=== PATIENT | male | born 1980 | race Caucasian/White ===

== ENCOUNTER 2020-07-27 12:57 | Emergency (ER) | payer BC, SELFPAY ==
[2020-07-27 13:02] VITALS: BP 129/80; PULSE 98; RESP 18; TEMP 36.9; O2SAT 99
--- NOTE | 2020-07-27 13:13 | ECG_ITS ---
Measurements Intervals [place] Rate: 107 P: 26 FL: 120 QRS: 23 QRSD: 86 T: 25 QT: 326 QTc: 436 Interpretive Statements SINUS TACHYCARDIA ST ELEVATION IN ANTERIOR LEADS- PROBABLY EARLY REPOLARIZATION BORDERLINE T WAVE ABNORMALITY- INFERIOR LEADS ABNORMAL ECG Electronically Signed On 07-27-2020 14:09:43 CDT by James Gay D.O.
--- NOTE | 2020-07-27 13:14 | ED.SYNCOPE ---
HPI - Syncope General Chief Complaint: Syncope Stated Complaint: Altered mental status Time Seen by Provider: 07/27/20 13:14 Source: patient and EMS Mode of arrival: EMS Limitations: no limitations History of Present Illness HPI narrative: Patient is a 40-year-old male with a history of asthma, recent alcohol ingestion overnight, who presents for evaluation of syncopal event. 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 Patient remembers waking up on the ground, coworker trying to speak to him. No seizure-like activity, no urinary incontinence, no confusion following the syncope. Patient currently denies any headache, chest pain or shortness of breath. No chest pain, palpitations, shortness of breath, lightheadedness or dizziness prior to the syncope. No history of syncope in the past. Patient states he was drinking alcohol last evening, otherwise denies any drug use. Patient is currently alert and oriented to person, place and to time. Related Data Allergies Allergy/AdvReac Type Severity Reaction Status Date / Time No Known Allergies Allergy Verified 07/27/20 13:08 Review of Systems Review of Systems: Narrative: CONSTITUTIONAL: Denies fever, chills, or sweats. EYES: Denies visual changes, redness, or discharge. ENT: Denies rhinorrhea, congestion, sore throat, or otalgia. CARDIOVASCULAR: Denies chest pain, palpitations, or edema. RESPIRATORY: Denies cough or dyspnea. GASTROINTESTINAL: Denies abdominal pain, nausea, vomiting, or diarrhea. GENITOURINARY: Denies dysuria or hematuria. SKIN: Denies rash or itching. MUSCULOSKELETAL: Denies back pain, joint pain, or myalgia. NEUROLOGIC: Denies headache, numbness, or weakness. FORMERLY [facility] Past Medical History Medical History Alcohol abuse Asthma Surgical History Surgical History History of hernia surgery Social History Social History (Updated 07/27/20 @ 13:29 by Dana Boone MD) Smoking status: Current every day smoker Tobacco type: cigarettes Alcohol intake: current Substance use: never Gender identity (if verbalized by the patient): Male Exam Narrative: Exam Narrative: GENERAL: Awake, alert, conversant HEAD: Normocephalic, atraumatic. EYES: PERRLA and EOMI. ENT: Nares clear, no rhinorrhea or epistaxis. Mucous membranes moist. NECK: Supple. CHEST: No respiratory distress, breathing even and non labored HEART: Regular rate, sinus rhythm ABDOMEN:Non distended, non tender EXTREMITIES: Normal range of motion. No edema. SKIN: Warm, dry, no rash. NEURO:No focal deficits. Alert and oriented x3. Finger to nose intact bilaterally. EOMs intact without nystagmus. No facial droop/asymmetry noted bilaterally. Grimace intact. Intact sensation in face. Hearing intact bilaterally. Shoulder shrug intact. Strength 5/5 bilateral upper extremities. Strength 5/5 bilateral lower extremities. Reflexes 2+ patellar. Heel to costello intact bilaterally. Ambulatory exam deferred. Course Vital Signs Vital signs: Vital Signs Temperature 36.9 C 07/27/20 13:02 Pulse Rate 98 07/27/20 13:02 Respiratory Rate 18 07/27/20 13:02 Blood Pressure 129/80 07/27/20 13:02 Pulse Oximetry 99 07/27/20 13:02 Temperature 36.9 C 07/27/20 13:02 Pulse Rate 78 07/27/20 14:49 Respiratory Rate 18 07/27/20 14:49 Blood Pressure 132/68 07/27/20 14:49 Pulse Oximetry 99 07/27/20 14:49 MDM - Syncope MDM Narrative Medical decision making narrative: Patient presented for evaluation of syncope and collapse at the workplace today. At the time of assessment, ABCs are intact and vital signs are stable. Physical exam is reassuring, including neurological exam is normal. Patient without any prodromal symptoms such as chest pain or shortness of breath. Given patient's alcohol history, I was concerned for possible
[2020-07-27 13:15] LABS: Glucose Point of Care 188 (65-105)
[2020-07-27 13:38] LABS: Basophils Absolute Auto 0.1 K/mm3 (0.0-0.1); Basophils Percent Auto 0.9 % (0.2-1.2); Eosinophils Absolute Auto 0.1 K/mm3 (0-0.3); Eosinophils Percent Auto 0.8 % (0-4.4); Hematocrit 49.7 % (42.0-52.0); Hemoglobin 17.5 g/dL (14.0-18.0); Immature Granulocyte Absolute 0.03 K/mm3 (0.00-0.031); Immature Granulocyte Percent A 0.5 % (0-0.5); Lymphocytes Absolute Auto 0.96 K/mm3 (0.9-3.2); Lymphocytes Percent Auto 14.7 % (18.3-44.2); Mean Corpuscular HGB Conc 35.2 g/dl (32-36); Mean Corpuscular Hemoglobin 33.3 pg (26-34); Mean Corpuscular Volume 94.7 fl (80-100); Mean Platelet Volume 10.6 fl (7.4-10.4); Monocytes Absolute Auto 0.5 K/mm3 (0.1-0.6); Neutrophils Percent Auto 76.1 % (45.5-73.1); Platelet Count Result 161 k/mm3 (150-375); Red Blood Count 5.25 M/mm3 (4.6-6.20); Red Cell Distribution Width 12.6 % (11.5-14.5); White Blood Count 6.5 K/mm3 (4.5-10.0)
[2020-07-27 13:45] LABS: Alveolar/Arterial O2 Gradient 40.8 mmHg; Base Excess ABG -2.1 mEq/l (+/-2.0); Fractional Inspired Oxygen 21 %; HCO3 ABG 22.1 mEq/l (22.0-26.0); Methemoglobin ABG 0.4 %THb (0-1.5); Oxygen Content ABG 22.4 %vol (16.0-22.0); Oxygen Saturation ABG 92.9 % (95.0-100.0); Oxyhemoglobin 90.3 % THb (90.0-100.0); PCO2 ABG 36.6 mmHg (35.0-45.0); PO2 ABG 65.1 mmHg (80.0-100.0); Reduced Hemoglobin 7.3 %THb (0-5.0); Total Hemoglobin 17.7 g/dL (12.0-18.0); pH ABG 7.398 (7.350-7.450)
[2020-07-27 13:46] LABS: Modified Allen's Test Pass; Site Drawn LEFT RADIAL
[2020-07-27 13:52] LABS: Anion Gap 16 mmol/L (8-16); Blood Urea Nitrogen 15 mg/dL (9-20); Calcium 9.9 mg/dL (8.4-10.2); Carbon Dioxide 19 mmol/L (22-30); Chloride 99 mmol/L (98-107); Estimated CRCL calculation 126 ml/min; Estimated Glomerular Filt Rate > 60; Glucose 174 mg/dL (75-110); Potassium 4.2 mmol/L (3.4-5.0); Sodium 134 mmol/L (137-145)
[2020-07-27 13:53] LABS: INR 1.2; Prothrombin Time 14.8 Seconds (11.1-14.7)
[2020-07-27 13:54] LABS: Partial Thromboplastin Time 25.7 SECONDS (22.3-36.8)
[2020-07-27 13:56] LABS: D Dimer 1.71 ug/mL (<0.48)
[2020-07-27 14:00] LABS: Ethanol < 10 mg/dL (<10)
[2020-07-27 14:03] LABS: Troponin I < 0.012 ng/mL (0.000-0.034)
[2020-07-27 14:49] VITALS: BP 132/68; PULSE 78; RESP 18; O2SAT 99
== END 2020-07-27 14:50 | disposition left against medical advice (07) ==
PROVIDERS: Emergency Medicine; Emergency Provider Emergency Medicine
DX: R55 Syncope and collapse (principal); F17.210 Nicotine dependence, cigarettes, uncomplicated; J45.909 Unspecified asthma, uncomplicated
CPT/HCPCS: 36415; 36600; 80048; 80307; 82375; 82805; 83050; 84484; 85025; 85380; 85610; 85730; 93005; 99284

== ENCOUNTER 2021-12-04 12:44 | Inpatient (IN) | payer MEDICAID, SELFPAY ==
[2021-12-04] VITALS (8 sets, daily range): BP systolic 117–140; BP diastolic 70–83; PULSE 81–111; RESP 16–20; TEMP 37.5; O2SAT 93–97; BMI 30.1
--- NOTE | ~2021-12-04 | CT_ITS ---
EXAMINATION: CT brain wo con EXAM DATE: 12/04/2021 14:13 INDICATION: Seizure, hit head on floor multiple seizures in last month, fell today and hit head . TECHNIQUE: Spiral CT of the head was performed without contrast. Axial, coronal and sagittal images were reviewed. The dose-length product (DLP) for this examination was 605.33 mGy-cm. The exposure w as tailored according to patient size, and iterative reconstruction (ASIR) was used as additional dos e reduction technique. There is no prior study for comparison. FINDINGS: There is no acute intraparenchymal hemorrhage. No evidence of intraparenchymal brain mass lesion. No evidence of acute infarction. There is no mass effect or midline shift. The ventricles are normal in size. There are no extra-axial collections. There are no acute calvarial fractures. T he orbits are unremarkable. Soft tissue is unremarkable. The visualized sinuses and mastoid air derrick ls are well aerated. IMPRESSION: 1. No acute intracranial findings. Reviewed, dictated and finalized at location . [facility]
--- NOTE | 2021-12-04 12:57 | ED.SEIZURE ---
HPI - Seizure General Chief Complaint: Seizure Stated Complaint: AMBULANCE Source: patient, EMS and RN notes reviewed Mode of arrival: EMS Limitations: no limitations History of Present Illness HPI Narrative: History from EMS and patient. Had several seizures at home this morning. Patient thinks he might have hit his head on the floor or the tub during seizure. He has some bruises and soreness to his upper extremities shoulders. He has been on seizure medicines consisting of carbamazepine for the last few months. He is attempting to withdrawal from alcohol the last 3 days. but did report that he drank some alcohol this morning. complaint: seizure Onset (ago): hour(s) (1) Description of Episode: loss of consciousness, tonic-clonic movement and bladder incontinence Witnessed: No Trauma: Yes Place: home Possible Precipitating Event: alcohol withdrawal Treatments prior to arrival: none Related Data Home Medications Medication Instructions Recorded Confirmed allopurinol 100 mg PO DAILY 12/04/21 12/04/21 atenolol 100 mg PO DAILY 12/04/21 12/04/21 carbamazepine 200 mg PO DAILY 12/04/21 12/04/21 hydroxyzine pamoate 50 mg PO BID 12/04/21 12/04/21 lisinopril 40 mg PO DAILY 12/04/21 12/04/21 meloxicam 15 mg PO DAILY 12/04/21 12/04/21 metformin 500 mg PO DAILY 12/04/21 12/04/21 montelukast 10 mg PO HS 12/04/21 12/04/21 omeprazole 40 mg PO DAILY 12/04/21 12/04/21 sertraline 100 mg PO DAILY 12/04/21 12/04/21 Allergies Allergy/AdvReac Type Severity Reaction Status Date / Time No Known Allergies Allergy Verified 12/04/21 13:41 Review of Systems Review of Systems: All systems reviewed & are unremarkable except as noted in HPI and below Constitutional: Constitutional: Denies chills and Denies fever(s) Cardiovascular: Cardiovascular: Denies chest pain Respiratory: Respiratory: Denies dyspnea Gastrointestinal: Gastrointestinal: Denies nausea and Denies vomiting Neurologic: Reports confusion (none currently), Denies vertigo and Denies focal weakness PMFSH Past Medical History Medical History (Updated 12/04/21 @ 20:17 by Jonathon Cheek MD) Alcohol abuse Asthma Depression Hypertension Seizure disorder Type 2 diabetes mellitus Surgical History Surgical History History of hernia surgery Social History Social History Smoking packs per day: 1 Smoking cigarettes per day: 20.0 Smoking status: Current every day smoker Tobacco type: cigarettes Second hand tobacco smoke exposure: No Alcohol intake: unknown Substance use: unknown Gender identity (if verbalized by the patient): Male Sexual Orientation (if Verbalized by the Patient): Straight or Heterosexual Spiritual care concerns: No Exam Const: General: no acute distress, alert and ill appearing chronically Nutritional Appearance: well nourished Orientation/consciousness: patient oriented x3 HENMT: Head: normal to inspection Ears: external ears normal General nose exam: Normal external nose present Face and sinus: normal facial exam Eyes: Conjunctivae: conjunctivae normal Pupils: Equal, round and reactive pupils present EOM: EOMs intact bilaterally Neck: Neck: normal visual inspection Resp: Effort & Inspection: normal respiratory effort Auscultation: clear to auscultation bilaterally Cardio: Rate: regular rate Rhythm: regular rhythm GI: GI Palp: Yes Soft to palpation and No Tenderness to palpation present (GI) Auscultation: normal bowel sounds Back/Spine/Pelvis: Cervical Spine: cervical ROM normal Thoracic/Lumbar Spine: thoraco-lumbar ROM normal Skin: General skin exam: normal color Neuro: General: patient oriented x3, moves all extremities, no meningeal signs, no focal motor deficits and CN's II-XI intact bilaterally Speech: normal speech Gait exam (Neuro): Normal gait present Extrem: General: normal to inspection an
[2021-12-04 13:19] LABS: Basophils Absolute Auto 0.04 K/mm3 (0.00-0.10); Basophils Percent Auto 0.7 % (0.0-1.0); Eosinophils Absolute Auto 0.02 K/mm3 (0.02-0.50); Eosinophils Percent Auto 0.4 % (1.0-6.0); Hematocrit 42.9 % (40.0-54.0); Hemoglobin 14.2 g/dL (14.0-18.0); Immature Granulocyte Absolute 0.02 K/mm3 (0.00-0.00); Immature Granulocyte Percent A 0.4 % (0.0-0.0); Immature Platelet Fraction Pct 6.6 % (1.0-7.0); Lymphocytes Absolute Auto 0.64 K/mm3 (1.10-4.50); Lymphocytes Percent Auto 11.4 % (18.0-42.0); Mean Corpuscular HGB Conc 33.1 g/dL (32.0-36.0); Mean Corpuscular Hemoglobin 33.3 pg (27.0-31.0); Mean Corpuscular Volume 100.7 fL (78.0-102.0); Mean Platelet Volume 10.7 fl (8.7-11.0); Monocytes Absolute Auto 0.35 K/mm3 (0.10-0.90); Monocytes Percent Auto 6.2 % (2.0-11.0); Neutrophils Absolute Auto 4.6 K/mm3 (1.7-7.2); Neutrophils Percent Auto 80.9 % (50.0-70.0); Platelet Count Result 57 K/mm3 (150-420); Red Blood Count 4.26 M/mm3 (4.70-6.10); Red Cell Distribution Width 14.8 % (11.6-14.4); White Blood Count 5.6 K/mm3 (4.8-10.8)
[2021-12-04 13:33] LABS: Amphetamine Screen Urine Negative (Negative); Barbiturate Screen Urine Negative (Negative); Benzodiazepines Screen Urine Negative (Negative); Cannabinoid Screen Urine Negative (Negative); Cocaine Screen Urine Negative (Negative); Methadone Screen Urine Negative (Negative); Opiate Screen Urine Negative (Negative); Phencyclidine Screen Urine Negative (Negative)
[2021-12-04 13:33] LABS: Alanine Aminotransferase 112 U/L (16-63); Albumin Level 4.4 g/dL (3.4-5.0); Alkaline Phosphatase 112 U/L (46-116); Anion Gap 28 mmol/L (8-16); Aspartate Amino Transferase 285 U/L (15-37); Bilirubin,Total 0.8 mg/dL (0.00-1.00); Blood Urea Nitrogen 8 mg/dL (7-18); Calcium 8.7 mg/dL (8.5-10.1); Carbon Dioxide 13 mmol/L (21-32); Chloride 94 mmol/L (98-108); Estimated CRCL calculation 78 ml/min; Estimated Glomerular Filt Rate > 60; Glucose 132 mg/dL (70-99); Magnesium 1.6 mg/dL (1.8-2.4); Osmolality Calculated 280 mOsm/kg (285-295); Potassium 4.1 mmol/L (3.5-5.1); Sodium 135 mmol/L (136-145)
[2021-12-04 13:39] LABS: Ethanol 25 mg/dL (0-6)
[2021-12-04 13:52] LABS: SARS-CoV-2 Ag Negative (Negative)
--- NOTE | 2021-12-04 14:48 | PC.NURSE ---
Mom called out stating pt was having a seizure. Pt having seizure. Oxygen applied, 15L by non-rebreather. Monitored patient for several minutes. Pt postictal, not communicating, vss. Will continue to monitor.
[2021-12-04] MEDS: LORazepam INJ (*CRX) 2 MG/ML VIAL IV PUSH ×2 (14:55→15:10)
[2021-12-04] MEDS: levETIRAcetam 1000MG/NACL100ML 1,000 MG/100 ML BAG 400 MG IVPB (15:13)
--- NOTE | 2021-12-04 15:43 | PC.NURSE ---
Pt having moments of agitation but able to be calmed with voice and touch. VSS. Mom at bedside and states she is doing ok. Call light within reach. Will continue to monitor.
--- NOTE | 2021-12-04 16:17 | PC.NURSE ---
Floor and registration notified of pt admission.
--- NOTE | 2021-12-04 16:31 | PC.NURSE ---
Phone report given to GARRISON Rivera.
[2021-12-04] MEDS: chlordiazePOXIDE (*CRX) 25 MG CAPSULE PO ×2 (17:45→21:20)
[2021-12-04] MEDS: LACTATED RINGERS 1,000 ML 150 ML IV CONT (17:45)
--- NOTE | 2021-12-04 18:30 | PC.NURSE ---
1710 41 year old male seen in ER for seizure activity and ETOH. Patient drowsy, wakes occasionally and mumbles response to questions then falls back to sleep. Patient alcohol level high. O2 @ 3LPM/NC. Patient has a history of seizure disorder, ETOH, asthma. Brought to floor via stretcher to room 206. Telemetry applied. x2 IV sites intact with no redness, swelling. drainage. #18 gauge IV in Left AC and #20 gauge IV in left hand. LR running at 150ml/hr to LAC. No resp distress observed. Patient was unable to wake up enought to eat dinner tray. Call light and belongings within reach.
[2021-12-04] MEDS: MONTELUKAST SODIUM 10 MG TABLET PO (21:20)
[2021-12-04] MEDS: PANTOPRAZOLE 40 MG TABLET PO (21:20)
[2021-12-04 21:26] LABS: Glucose Point of Care 67 mg/dl (65-105)
[2021-12-05] VITALS (10 sets, daily range): BP systolic 126–141; BP diastolic 81–92; PULSE 78–89; RESP 17–23; TEMP 36.7–37.2; O2SAT 94–98
[2021-12-05] MEDS: chlordiazePOXIDE (*CRX) 25 MG CAPSULE PO ×6 (00:49→21:14)
[2021-12-05] MEDS: LACTATED RINGERS 1,000 ML 150 ML IV CONT ×3 (01:04→15:04)
--- NOTE | 2021-12-05 01:04 | PC.NURSE ---
Pt transferred to bedside commode with 1 assist and pt performed transfer fairly. 2 assist when then used to bring pt back to bed and pt performed slightly worse with having poor balance, but did transfer okay. Bed was then placed in lowest position for pt safety and call light was placed within reach.
[2021-12-05 05:29] LABS: Basophils Absolute Auto 0.02 K/mm3 (0.00-0.10); Basophils Percent Auto 0.5 % (0.0-1.0); Eosinophils Absolute Auto 0.03 K/mm3 (0.02-0.50); Eosinophils Percent Auto 0.7 % (1.0-6.0); Hematocrit 39.1 % (40.0-54.0); Immature Granulocyte Absolute 0.02 K/mm3 (0.00-0.00); Immature Granulocyte Percent A 0.5 % (0.0-0.0); Immature Platelet Fraction Pct 8.3 % (1.0-7.0); Lymphocytes Percent Auto 16.8 % (18.0-42.0); Mean Corpuscular HGB Conc 33.2 g/dL (32.0-36.0); Mean Corpuscular Hemoglobin 32.6 pg (27.0-31.0); Mean Platelet Volume 11.9 fl (8.7-11.0); Monocytes Absolute Auto 0.32 K/mm3 (0.10-0.90); Monocytes Percent Auto 7.7 % (2.0-11.0); Neutrophils Absolute Auto 3.1 K/mm3 (1.7-7.2); Neutrophils Percent Auto 73.8 % (50.0-70.0); Platelet Count Result 39 K/mm3 (150-420); Red Blood Count 3.99 M/mm3 (4.70-6.10); Red Cell Distribution Width 14.5 % (11.6-14.4); White Blood Count 4.2 K/mm3 (4.8-10.8)
[2021-12-05 05:41] LABS: Anion Gap 13 mmol/L (8-16); Blood Urea Nitrogen 7 mg/dL (7-18); Carbon Dioxide 26 mmol/L (21-32); Chloride 97 mmol/L (98-108); Estimated CRCL calculation 115 ml/min; Estimated Glomerular Filt Rate > 60; Glucose 111 mg/dL (70-99); Osmolality Calculated 281 mOsm/kg (285-295); Potassium 3.6 mmol/L (3.5-5.1); Sodium 136 mmol/L (136-145)
[2021-12-05] MEDS: SERTRALINE HCL 50 MG TABLET 100 MG PO (09:02)
[2021-12-05] MEDS: lisinopriL 20 MG TABLET 40 MG PO (09:02)
[2021-12-05] MEDS: atenoloL 50 MG TABLET 100 MG PO (09:03)
[2021-12-05] MEDS: PANTOPRAZOLE 40 MG TABLET PO ×2 (09:03→21:16)
[2021-12-05] MEDS: metFORMIN HCL 500 MG TABLET PO (09:03)
[2021-12-05] MEDS: allopurinoL 100 MG TABLET PO (09:03)
[2021-12-05] MEDS: carBAMazepine 200 MG TABLET PO (09:04)
[2021-12-05] MEDS: MELOXICAM 7.5 MG TABLET 15 MG PO (09:04)
--- NOTE | 2021-12-05 09:05 | PM.IMHP ---
H&P: HPI History of Present Illness Date/Time: 12/05/21 09:05 Jonathon Sutherland is a 41 year old male who comes to the hospital voluntarily, with his mothers encouragement, for EtOH Abuse. Reports indicate Pt has had multiple seizures when he attempted to stop drinking on his own. Due to this he was encouraged to come to the hospital for help. Pt admits that he drinks from morning to night daily. Pt has bruises on his back, left lower lip, and left side of tongue from having seizures. His pharmacy was contacted, [facility] in [place], [place], informing me he has not picked up his medications since September 2021. One of those medications was Tegretol. He may have attempted to quite drinking around that time. Pt does not complain of any chest pain, difficulty breathing, abdominal pain, musculoskeletal pain, fevers or chills. I discussed with the Pt the need to separate from friends that will encourage him back into the alcohol scene. He states that all of his friends are either gone or . Also, we discussed rehabilitation which he is amicable to attend. I discussed with Gisela, Precision Agriculture Technician, and she will be talking with Jonathon regarding same. Pt has a PMHx of Seizures, T2DM, Depression, Asthma, and EtOH Abuse. Chief Complaint: EtOH Abuse, EtOH withdrawal Seizures Review of Systems Constitutional: Constitutional: Reports no additional constitutional complaints, Denies body ache(s), Denies chills, Denies fever(s), Denies headache(s) and Reports weakness Eyes: Eyes: Reports no additional eye complaints, Denies blurry vision, Denies dry eyes, Denies irritation, Denies loss of vision, Denies eye pain and Denies seeing flashes Comments: Denies hallucinations ENT: Denies dental pain, Reports facial pain (Left Lower Lip), Denies headache(s), Reports mouth pain (Left jaw) and Denies neck pain Comments: Tongue pain left side Cardiovascular: Cardiovascular: Denies chest pain, Denies chest pain at rest, Denies chest pain with activity, Denies leg edema, Denies dyspnea, Denies dyspnea on exertion and Denies orthopnea Respiratory: Respiratory: Denies cough, Denies hemoptysis, Denies dyspnea and Denies dyspnea on exertion Gastrointestinal: Gastrointestinal: Denies abdominal pain, Denies heartburn, Denies nausea and Denies vomiting Musculoskeletal: Musculoskeletal: Reports no additional musculoskeletal complaints, Denies numbness and Denies stiffness Neurologic: Reports Normal hearing present, Denies dizziness, Denies headache(s) and Denies focal weakness Psychiatric: Psychiatric: Reports depression, Denies irritability and Denies tactile hallucinations Endocrine: Endocrine: Reports as per [facility] Past Medical History Medical History (Updated 12/05/21 @ 17:35 by VIDYA Maxwell) Alcohol abuse Asthma Depression Gout Hypertension Reflux esophagitis Seizure disorder Type 2 diabetes mellitus Surgical History Surgical History History of hernia surgery Social History Social History (Updated 12/05/21 @ 09:33 by VIDYA Maxwell) Smoking packs per day: 1 Smoking cigarettes per day: 20.0 Smoking status: Current every day smoker Tobacco type: cigarettes Second hand tobacco smoke exposure: No Alcohol intake: current Alcohol use details: Pt states he drinks from morning until night. Substance use: never Gender identity (if verbalized by the patient): Male Sexual Orientation (if Verbalized by the Patient): Straight or Heterosexual Spiritual care concerns: No Meds Home Medications and Allergies Home Medications Medication Instructions Recorded Confirmed Type allopurinol 100 mg PO DAILY 12/04/21 12/04/21 History atenolol 100 mg PO DAILY 12/04/21 12/04/21 History carbamazepine 200 mg PO DAILY 12/04/21 12/04/21 History hydroxyzine pamoate 50 mg PO BID 12/04/21 12/04/21 History lisinopril 40 mg PO DAILY 12/04/21 12/04/21 History meloxicam 15 mg PO DAILY
[2021-12-05 12:18] LABS: Glucose Point of Care 101 mg/dl (65-105)
[2021-12-05] MEDS: NICOTINE (*PBKC) 21 MG PATCH 1 PATCH TRANSDERM (13:05)
[2021-12-05 17:40] LABS: Glucose Point of Care 120 mg/dl (65-105)
[2021-12-05] MEDS: THIAMINE HCL INJ 100 MG, FOLIC ACID 1 MG, MULTIVITAMINS-12 INJ 10 ML, MAGNESIUM SULFATE... IV CONT (19:25)
[2021-12-05 21:15] LABS: Glucose Point of Care 90 mg/dl (65-105)
[2021-12-05] MEDS: MONTELUKAST SODIUM 10 MG TABLET PO (21:16)
--- NOTE | 2021-12-05 22:14 | PC.NURSE ---
Patient c/o dry eyes. Now order received for artificial tears prn.
[2021-12-05] MEDS: ARTIFICIAL TEARS OPHTH SOLN 15 ML BOTTLE 1 DROP EACH EYE (23:00)
--- NOTE | 2021-12-05 23:03 | PC.NURSE ---
notified of blood pressure being slightly elevated. No new orders.
--- NOTE | 2021-12-05 23:06 | PC.NURSE ---
Charge nurse notified of elevated bp; she contacted the who has no further orders at this time other than to monitor bp.
[2021-12-06] MEDS: chlordiazePOXIDE (*CRX) 25 MG CAPSULE PO ×5 (01:15→17:35)
--- NOTE | 2021-12-06 02:52 | PC.NURSE ---
Pt rounding complete. Pt is sleeping on his left side with the call light within reach.
--- NOTE | 2021-12-06 05:09 | PC.NURSE ---
Pt requested to contact his mother; afterwards pt became extremely agitated and says he will leave this hospital. was notified of pt's behavior and request. Pt's father then called to see if he will come sweet pickled fruit maker Jonathon if he were to sign out AMA. Both of the pt's parents verbalized their desire for Jonathon to stay at the hospital longer despite Jonathon not wanting to stay. Both parents refused to pick Jonathon up if he were to sign out AMA. Pt returned back to bed.
[2021-12-06 05:18] VITALS: O2SAT 96
--- NOTE | 2021-12-06 06:08 | PC.NURSE ---
Pt's father's phone number is [phone] if pt wants to contact him.
--- NOTE | 2021-12-06 06:09 | PC.NURSE ---
Pt is laying on his right side with the bed in lowest position for pt safety. Call light within reach
[2021-12-06 07:30] VITALS: BP 116/70; PULSE 84; RESP 18; TEMP 36.4; O2SAT 97
--- NOTE | 2021-12-06 08:17 | PM.IMPN ---
Progress Note: A&P Assessment and Plan (1) Alcohol withdrawal seizure: Qualifiers: Complication of substance-induced condition: with unspecified complication Qualified Code(s): F10.239 - Alcohol dependence with withdrawal, unspecified; R56.9 - Unspecified convulsions Code(s): F10.239 - Alcohol dependence with withdrawal, unspecified; R56.9 - Unspecified convulsions Status: Acute Assessment and Plan: Seizure Precautions, Librium 25 mg PO Q4H with taper as appropriate, CIWA-Ar with Ativan, Tegretol, IVF LR @ 150/h Pt taking PO fluids well DC'ed, Banana bag, Thiamin Daily, contacted Business Department Chair re Rehabilitation 12/06/2021 Pt has been doing rather well, no seizure activity reported, mild withdraw symptoms, amicable to rehabilitation (2) Diabetes mellitus type 2 in obese: Code(s): E11.69 - Type 2 diabetes mellitus with other specified complication; E66.9 - Obesity, unspecified Status: Acute Assessment and Plan: ACHS Glucose monitoring, Continue Metformin, diabetic diet when tolerating PO fluids well. 12/06/2021 Glucose maintained around 90-120, no changes needed (3) Hypertension: Code(s): I10 - Essential (primary) hypertension Status: Inactive Assessment and Plan: VSS, continue Lisinopril, Monitor VS, make adjustments as needed. 12/06/2021 VSS, no changes in medications needed. (4) Reflux esophagitis: Code(s): K21.00 - Gastro-esophageal reflux disease with esophagitis, without bleeding Status: Acute Assessment and Plan: Continue Protonix (5) Depression: Code(s): F32.A - Depression, unspecified Status: Inactive Assessment and Plan: Continue Zoloft (6) Nicotine dependence: Code(s): F17.200 - Nicotine dependence, unspecified, uncomplicated Status: Acute Assessment and Plan: Nicotine Patch 21 mg daily, smoking cessation Subjective Date/time seen: 12/06/21 08:17 Pt is walking around in his room appearing a bit anxious. Discussed with Pt regarding EtOH rehabilitation as did Jessica Business Department Chair. Pt is amicable to inpatient or outpatient rehabilitation. I discussed with him that inpatient may be more beneficial for him. Per Jessica, Pt's mother has both options ready depending on what the Pt wants to do. Pt stated that he was not sure he was doing the right thing by being in the hospital. We discussed the likelihood that he is becoming anxious and looking for a way to have a drink. He was given some Ativan which did relax him. Pt denies any issues other than admitting to being anxious/nervous. 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) Exam Const: General: cooperative, comfortable, no acute distress, well developed, alert, awake and Physically active Nutritional Appearance: overweight Resp: Effort & Inspection: normal respiratory effort and no cough Auscultation: clear to auscultation bilaterally Cardio: Rate: regular rate Heart sounds: S1 normal heart sound present and S2 normal heart sound present Skin: General skin exam: normal color and dry skin Neuro: General: oriented to person, oriented to place, oriented to time, moves all extremities and no focal motor deficits Cranial nerves: Yes CN's II-XII intact bilaterally, Yes Equal, round and reactive pupils present and Yes facial symmetry Speech: normal speech Gait exam (Neuro): Normal gait present Motor exam (neuro): 5/5 motor strength present throughout Coordination: No [id number] test normal (delayed reaction to moving target) Extrem: General: full ROM, no pedal edema and no calf tenderness Psych: Appearance: grossly normal Mental Status: mental status grossly normal Speech and movement: Slowed movement present (Neuro) Affect: Anxious affect present and Indifferent affect
[2021-12-06 08:39] LABS: Glucose Point of Care 94 mg/dl (65-105)
[2021-12-06 09:11] VITALS: PULSE 84
[2021-12-06] MEDS: metFORMIN HCL 500 MG TABLET PO (09:11)
[2021-12-06] MEDS: lisinopriL 20 MG TABLET 40 MG PO (09:11)
[2021-12-06] MEDS: atenoloL 50 MG TABLET 100 MG PO (09:11)
[2021-12-06] MEDS: NICOTINE (*PBKC) 21 MG PATCH 1 PATCH TRANSDERM (09:11)
[2021-12-06] MEDS: allopurinoL 100 MG TABLET PO (09:12)
[2021-12-06] MEDS: PANTOPRAZOLE 40 MG TABLET PO (09:12)
[2021-12-06] MEDS: SERTRALINE HCL 50 MG TABLET 100 MG PO (09:12)
[2021-12-06] MEDS: MELOXICAM 7.5 MG TABLET 15 MG PO (09:12)
[2021-12-06] MEDS: carBAMazepine 200 MG TABLET PO (09:12)
[2021-12-06] MEDS: THIAMINE HCL 100 MG TABLET 200 MG PO (09:12)
[2021-12-06] MEDS: LORazepam INJ (*CRX) 2 MG/ML VIAL 1 MG IV PUSH (10:30)
[2021-12-06 12:45] VITALS: BP 128/79; PULSE 77; RESP 18; TEMP 36.3; O2SAT 95
[2021-12-06 14:21] LABS: Glucose Point of Care 92 mg/dl (65-105)
--- NOTE | 2021-12-06 15:34 | PM.DS ---
DS: Admitting Diagnosis Discharge Date 12/06/2021 Admitting Diagnosis EtOH withdrawal Seizures DS: Discharge Diagnosis Discharge Diagnosis (1) Alcohol withdrawal seizure: Qualifiers: Complication of substance-induced condition: with unspecified complication Qualified Code(s): F10.239 - Alcohol dependence with withdrawal, unspecified; R56.9 - Unspecified convulsions Code(s): F10.239 - Alcohol dependence with withdrawal, unspecified; R56.9 - Unspecified convulsions Status: Acute Assessment and Plan: Seizure Precautions, Librium 25 mg PO Q4H with taper as appropriate, CIWA-Ar with Ativan, Tegretol, IVF LR @ 150/h Pt taking PO fluids well DC'ed, Banana bag, Thiamin Daily, contacted Marine Engineering Professor re Rehabilitation 12/06/2021 Pt has been doing rather well, no seizure activity reported, mild withdraw symptoms, amicable to rehabilitation (2) Diabetes mellitus type 2 in obese: Code(s): E11.69 - Type 2 diabetes mellitus with other specified complication; E66.9 - Obesity, unspecified Status: Acute Assessment and Plan: ACHS Glucose monitoring, Continue Metformin, diabetic diet when tolerating PO fluids well. 12/06/2021 Glucose maintained around 90-120, no changes needed (3) Hypertension: Code(s): I10 - Essential (primary) hypertension Status: Inactive Assessment and Plan: VSS, continue Lisinopril, Monitor VS, make adjustments as needed. 12/06/2021 VSS, no changes in medications needed. (4) Reflux esophagitis: Code(s): K21.00 - Gastro-esophageal reflux disease with esophagitis, without bleeding Status: Acute Assessment and Plan: Continue Protonix (5) Depression: Code(s): F32.A - Depression, unspecified Status: Inactive Assessment and Plan: Continue Zoloft (6) Nicotine dependence: Code(s): F17.200 - Nicotine dependence, unspecified, uncomplicated Status: Acute Assessment and Plan: Nicotine Patch 21 mg daily, smoking cessation DS: Summary Hospital Course Hospital Course: Pt has done well, no seisure activity while hospitalized. Pt has plan for rehabilitation after DC. Medications sent to pharmacy. Time Spent with Patient Time attestation: Total time spent providing and/or coordinating discharge services: Exam Const: General: cooperative, comfortable, no acute distress, well developed, alert, awake, Physically active and tired appearing Nutritional Appearance: overweight Orientation/consciousness: oriented to person, oriented to place and oriented to time Limitations: other limitations (Pt is attempting to stop drinking alcohol) HENMT: Head: contusion (Left lower lip/jaw) Ears: hearing grossly normal bilaterally Eyes: General: appearance normal, both eyes and all related structures Visual Quinonez: normal visual quinonez by confrontation Alignment and Position: alignment normal Periorbital: periorbital findings normal Eyelids: eyelids normal Conjunctivae: conjunctivae normal Sclera: sclerae normal Pupils: Equal, round and reactive pupils present EOM: Nystagmus present Neck: Neck: full ROM Chest: Chest palpation & inspection: normal inspection of the chest Resp: Effort & Inspection: normal respiratory effort and no cough Auscultation: clear to auscultation bilaterally Cardio: Rate: regular rate Heart sounds: S1 normal heart sound present and S2 normal heart sound present GI: Inspection: normal to inspection Auscultation: normal bowel sounds Back/Spine/Pelvis: Cervical Spine: normal cervical lordosis and cervical ROM normal Thoracic/Lumbar Spine: thoracic and lumbar spine normal to inspection Skin: General skin exam: normal color and dry skin Neuro: General: oriented to person, oriented to place, oriented to time, moves all extremities, no focal motor deficits and Unable to assess gait (will have PT evaluate) Cranial nerves: Yes CN's II-XII intact bilaterally, Yes Equal, round and reactive pu
[2021-12-06 15:40] VITALS: BP 120/72; PULSE 78; RESP 18; TEMP 36.6; O2SAT 95
--- NOTE | 2021-12-06 18:00 | PC.NURSE ---
Patient discharged home with mother. All discharge instructions and education reviewed with patient and mother. Both patient and mother state understanding. All belongings gathered together and sent home with patient. IV site to left ac and right forearm discontinued, dressing applied to site. Patient accompanied to front door via wheelchair by this nurse, left via private vehicle with mother.
[2021-12-07 16:44] LABS: Carbamazepine Tegretol 6.2 mcg/mL (4.0-12.0)
--- NOTE | 2021-12-10 13:57 | PC.NURSE ---
Unable to contact for discharge call back.
== END 2021-12-06 18:00 | disposition home or self-care (01) | DRG 775 ==
LOC: CHSED 16:20 → CHS2ND 16:20
PROVIDERS: Admitting Provider Emergency Medicine; Emergency Provider Emergency Medicine; PCP Family Medicine; Visit Provider Emergency Medicine
DX: R56.9 Unspecified convulsions (principal); J45.909 Unspecified asthma, uncomplicated; E11.9 Type 2 diabetes mellitus without complications; I10 Essential (primary) hypertension; F32.A Depression, unspecified; F10.239 Alcohol dependence with withdrawal, unspecified; F17.210 Nicotine dependence, cigarettes, uncomplicated; Z20.822 Contact with and (suspected) exposure to COVID-19; K21.00 Gastro-esophageal reflux disease with esophagitis, without bleeding
CPT/HCPCS: 36415; 70450; 80048; 80053; 80156; 80307; 82948; 83735; 85025; 85055; 87426; 96365; 96375; 99285; A9270; C9803; J1953; J2060; J2405; J3411; J3475; J7030; J7042; J7120